=== PATIENT | female | born 1990 | race Caucasian/White ===

== ENCOUNTER → 2018-08-24 13:30 | Outpatient (CLI) | payer MEDICAID, SELFPAY ==
[2018-08-31 12:30] LABS: HPV Reflexed? NOT INDICATED
== END ==
PROVIDERS: Visit Provider Obstetrics & Gynecology
DX: Z12.4 Encounter for screening for malignant neoplasm of cervix (principal)
CPT/HCPCS: 88175; G0145

== ENCOUNTER 2018-09-30 05:56 | Day surgery (SDC) | payer MEDICAID, SELFPAY ==
--- NOTE | 2018-09-29 21:45 | HP.PCM_ITS ---
History and Physical Date of Admission: 09/30/18 Name: GERSON REGALADO Age: 28 Date of : 1990 PREOPERATIVE HISTORY AND PHYSICAL: On 09/16/2018, Gerson Regalado, a 28 year old female 2 0 0 0 2 who presents for laparoscopic bilateral salpingectomy. No further childbearing desired. She signed federal consent for tubal more than 30 days ago. EB ALLERGIES: NKDA MEDICATIONS HISTORY: Patient is also takin. Celexa 40 mg tablet, daily REVIEW OF SYSTEMS: GENERAL - Denies fever, or chills SKIN - Denies skin changes EYES - Denies visual changes EARS - Denies difficulty hearing NOSE - Denies nasal congestion or bleeding MOUTH - Denies sore throat or difficulty swallowing NECK - Denies pain or swelling RESPIRATORY - Denies shortness of breath or wheezing CARDIOVASCULAR - Denies palpitations or chest pain GASTROINTESTINAL - Denies nausea, vomiting, diarrhea, constipation GENITOURINARY - Denies dysuria, frequency of urination, incontinence of urine MUSCULOSKELETAL - Denies joint or muscle pain NEUROLOGICAL - Denies localized numbness or weakness PSYCHIATRIC - Denies depression or anxiety ENDOCRINE - Denies heat or cold intolerance, weight loss or gain HEMATO-IMMUNOLOGIC - Denies excesive bleeding with cuts PAST HISTORY: Breast/Ovarian/Colon Cancers - Denies Infections - Chicken pox Illnesses - LGSIL pap Accidents - broken R foot, 2003, A/A age 11 and no probs Hospitalizations - Childbirth by [facility]; SURGICAL HISTORY: 1. 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 Illicit Drug Use - denies use of street drugs Sexual Activity - single sexual partner Residence - lives with family Place of - [place] Hours Worked - 40-50 Children Name(s) - Rafa Control - condoms PHYSICAL EXAMINATION BP- 100/80 Sitting, Right arm, regular cuff Weight- 180.40 lbs Height- 64.50 inch BMI:30.55 CONSTITUTIONAL - NAD, well nourished, and well developed HEENT - Normocephalic, PERRLA, EOMI NECK - supple LUNGS - CTA x2 without wheezes, crackles or rales CARDIAC - Regular rate and rhythm without rubs, murmurs, or gallops BREAST - deferred EXTREMITIES - No edema or calf tenderness NEUROLOGICAL - Cranial nerves II-XII grossly intact PSYCHIATRIC - A and O to time, place, person, mood and affect ASSESSMENT: 1. Other Specified Counseling, sterilization request PLAN BY DIAGNOSIS: 1. Other Specified Counseling, Sterilization request Interested in bilateral tubal ligation. NO further childbearing desired Reviewed R,B,A success, permanence, failure rate. Discussed: BTL Filshie clips, bilateral tubal fulguration. Bilateral salpingectomy Prefers L/S bilateral salpingectomy. Federal consent for tubal signed in August 2018, more than 30 d prior to scheduled surgery. Reviewed anticipated preop, operative and postop recovery including activity restrictions All questions answered to her satisfaction. Pamphlet given to read and consider further at prior visit: ACOG Sterilization by Laparoscopy. Proceed with Laparoscopic Bilateral salpingectomy. RTO for postop appointment in two weeks after surgery. Medication(s) Stopped/Reason: 27-0.8 mg tablet - No Longer Needed NO CHANGES TO H and P as entered Gracia Patel, 09/30/18 0718
--- NOTE | 2018-09-30 | FALS_PTH ---
PATIENT: GERSON REGALADO [place] [facility] [place][id number] AGE/SX: 28/F ROOM: RE09/30/[address]: Dr. Tammie Patel MD : 1990 BED: DIS: 09/30/2018 SPEC #: [id number] RECD: 09/30/18 13:04 STATUS: WILMAN AKOSUA #: [id number] ANGELNIA: 09/30/18 00:[address]: Tammie Patel DEPT: SURGICAL PATHOLOGY RECD BY: Shahab Brody ENTERED: 09/30/18 13:05 SP TYPE: FALL TUBES OTHR DR: Dr. Stephenie Kirk, DO Tissues: Fallopian tube Procedures: Surgery Specimen Level II HEADER OPERATION: Laparoscopic salpingectomy PRE-OP DIAGNOSIS: Sterilization request TISSUE SUBMITTED: Bilateral fallopian tubes MICROSCOPIC DIAGNOSIS Right and left fallopian tubes, bilateral salpingectomies: Right fallopian tube, complete cross section with focal endometriosis. Left fallopian tube, complete cross section with no pathologic change. See comment. AM:ynla 10/01/18 COMMENT Immunohistochemistry ([id number]) supports the above diagnosis. Case has been reviewed in consultation with Dr. Gagnon who concurs with the above diagnosis. IDC:CE MICROSCOPIC DESCRIPTION Slides are reviewed. GROSS DESCRIPTION Received is one container labeled with the patient's name and designated bilateral fallopian tubes. The specimen consists of two fallopian tubes with an average length of 4 cm and has an average diameter of 0.7 cm. Both fallopian tubes have normal fimbriated ends. No mass lesions are identified. Manager Cosmetic sections are submitted in two cassettes as follows: 1 - one fallopian tube, 2 - the other fallopian tube. / AM:nyla 09/30/18 TC:5 CPT: 11863 x2
--- NOTE | 2018-09-30 | IMM_PTH ---
PATIENT: GERSON REGALADO LOC: [facility] U#:[id number] AGE/SX: 28/F ROOM: RE09/30/[address]: Dr. Tammie Patel MD : 1990 BED: DIS: 09/30/2018 SPEC #: [id number] RECD: 10/01/18 14:31 STATUS: WILMAN REQ #: [id number] ANGELINA: 09/30/18 00:[address]: Tammie Patel DEPT: IMMUNOHISTOCHEMISTRY RECD BY: Francy Painting ENTERED: 10/01/18 14:32 SP TYPE: IMMUNO OTHR DR: Dr. Stephenie Kirk, DO Tissues: Fallopian tube Procedures: CEA (add) Vimentin (add) CD10 (initial) PHYSICIAN & INSTITUTION [place] [address] SPECIMEN INFORMATION: Tissue Source: Bilateral fallopian tubes Clinical Info: Sterilization request Specimen Number: [id number] #[id number] CPT code: 67033, 47789 x2 METHODOLOGY: Deparaffinized sections of prefer/formalin-fixed tissue or PAP/DQ stained slides are incubated with monoclonal/polyclonal antibodies/oligonucleotide probes. Localization is made via biotin free immunoperoxidase method. Appropriate controls are performed and reacted as expected. Results on target cell population are indicated in the following table: RESULTS: ANTIBODY / CLONE RESULT Block 1 CD10 (56C6) positive Vimentin (V9) positive CEA (11-7/TF-3HB-1) negative These tests were developed and their performance characteristics determined by [facility]. They may not have been cleared or approved by the [place]. Food and Drug Administration. The FDA has determined that such clearance or approval is not necessary. INTERPRETATION: Bilateral fallopian tubes, salpingectomy: Consistent with minute focus of endometriosis. AM:nyla 10/04/18
[2018-09-30 06:35] VITALS: BP 96/58; PULSE 70; RESP 14; TEMP 36.6; O2SAT 99; BMI 30.7
[2018-09-30 06:37] LABS: Internal QC Validated? YES +Cl - CLEAR BKGD; Pregnancy, Urine Negative Negative
[2018-09-30] MEDS: Bupiv/Epi 0.5% Mpf 30 ML Vial (07:50)
--- NOTE | 2018-09-30 08:01 | PCM.DC.TUB ---
Discharge Diet: No Restrictions Discharge Activity: May not drive while taking narcotic pain medications., May Shower, May Take a Tub Bath Return to work on:: 10/02/18 May resume sexual activity in: 1 week Additional Activity Instructions:: Ambulate often the next week after surgery. Nothing in the vagina for 5 days. Call your doctor if you observe: Fever of 101 or Higher, Inability to have a bowel movement, Uncontrolled pain Change Dressing in (Days):: 7 Remove Dressing in (days):: 7 Cleanse incision/area with: Soap & Water, Keep Dressing Clean & Dry Allergies/Adverse Reactions: Allergies No Known Allergies Allergy (Verified 09/23/18 14:41) Medications to take at Discharge Ascorbic Acid [Vitamin C] 1,000 mg PO DAILY 09/23/18 Calcium Carbonate/Vitamin D3 [Calcium 500-Vit D3 600 Tablet] 1 each PO DAILY 09/23/18 Citalopram [Celexa] 40 mg PO DAILY 09/23/18 Multivitamin with Minerals [Multiple Vitamin] 1 each PO DAILY 09/23/18 Vest-3 Fatty Acids/Fish Oil [Fish Oil 1,000 mg Capsule] 1 each PO DAILY 09/23/18 Oxycodone HCl/Acetaminophen [Percocet 5-325] 1 - 2 tablet PO Q4H PRN PRN 7 Days #10 tablet 09/30/18 The following prescriptions were given: Oxycodone HCl/Acetaminophen [Percocet 5-325] 1 - 2 tablet PO Q4H PRN PRN 7 Days #10 tablet PRN Reason: Mod-Severe Pain (4-10/10) Primary Care Physician: Stephenie Cohen DO [Primary Care Provider] - Test Results: Test results from this visit will be discussed in further detail at your follow-up appointment, if applicable. Please Follow Up With: Tammie Patel MD - [phone] When: in two weeks for postop incision check Proposed Discharge Date: 09/30/18
--- NOTE | 2018-09-30 08:05 | DCINST_ITS ---
Discharge Diet: No Restrictions Discharge Activity: May not drive while taking narcotic pain medications., May Shower, May Take a Tub Bath Return to work on:: 10/02/18 May resume sexual activity in: 1 week Additional Activity Instructions:: Ambulate often the next week after surgery. Nothing in the vagina for 5 days. Call your doctor if you observe: Fever of 101 or Higher, Inability to have a bowel movement, Uncontrolled pain Change Dressing in (Days):: 7 Remove Dressing in (days):: 7 Cleanse incision/area with: Soap & Water, Keep Dressing Clean & Dry Allergies/Adverse Reactions: Allergies No Known Allergies Allergy (Verified 09/23/18 14:41) Medications to take at Discharge Ascorbic Acid [Vitamin C] 1,000 mg PO DAILY 09/23/18 Calcium Carbonate/Vitamin D3 [Calcium 500-Vit D3 600 Tablet] 1 each PO DAILY 09/23/18 Citalopram [Celexa] 40 mg PO DAILY 09/23/18 Multivitamin with Minerals [Multiple Vitamin] 1 each PO DAILY 09/23/18 [place]-3 Fatty Acids/Fish Oil [Fish Oil 1,000 mg Capsule] 1 each PO DAILY 09/23/18 Oxycodone HCl/Acetaminophen [Percocet 5-325] 1 - 2 tablet PO Q4H PRN PRN 7 Days #10 tablet 09/30/18 The following prescriptions were given: Oxycodone HCl/Acetaminophen [Percocet 5-325] 1 - 2 tablet PO Q4H PRN PRN 7 Days #10 tablet PRN Reason: Mod-Severe Pain (4-10/10) Primary Care Physician: Stephenie Cohen DO [Primary Care Provider] - Test Results: Test results from this visit will be discussed in further detail at your follow- up appointment, if applicable. Please Follow Up With: Tammie Patel MD - [phone] When: in two weeks for postop incision check Proposed Discharge Date: 09/30/18
[2018-09-30 08:14] VITALS: BP 103/53; BP 96/58; PULSE 69; RESP 16; TEMP 36.7; O2SAT 97
--- NOTE | 2018-09-30 08:19 | PCM.OPRPT ---
Report of Operation Date of Procedure: 09/30/18 Pre-Operative Diagnosis: sterilization request Post-Operative Diagnosis: Same Surgery/Procedure Performed:: Laparoscopic bilateral salpingectomy hoisting engineer pile driving: Yuliana Garcia Type of Anesthesia:: General Anesthesiologist: Yared Barron CRNA Specimen's removed: Bilateral fallopian tubes Drains: red encinas prior to procedure Estimated Blood Loss (mL): 20 Fluids Replaced: LR Description of Procedure: Findings: There is a normal-appearing [anteverted] uterus. Fallopian tubes and ovaries are within normal limits. Gross inspection of the bowel, omentum, liver edge are also within normal limits. Photos were taken of the uterus and ovaries after the bilateral partial salpingectomy, and of the right upper quadrant/liver edge. Narrative account: After the risks, benefits, alternatives of the procedure have been reviewed with the patient, informed consent was obtained. The patient was taken to the operating room with an IV running. She was positioned on the operating table in dorsal supine position, where she was given general anesthesia. Once asleep she was repositioned into the dorsal lithotomy position and prepped and draped in the usual sterile fashion. A red Encinas catheter was used to drain the bladder prior to initiating the case. A single-toothed tenaculum and Tip cannula were placed into the cervix to allow manipulation of the cervix and uterus during the case. Attention was then turned to the anterior abdominal wall where 0.5% percent Marcaine with epinephrine was instilled at the suprapubic and infraumbilical skin and at a point midway between the two, in the midline. Skin incisions were then created in the midline at the suprapubic skin, at the infraumbilical skin, and at a point in the midline midway between the two. While maintaining upward traction of the anterior abdominal wall, a Veress needle was inserted through the umbilical incision into the peritoneal cavity. There was free drop of saline, low opening pressure and free flow of CO2 noted. Once the intra-abdominal pressure had reached 12 mmHg the Veress needle was removed and a bladeless 5 mm trocar was inserted through the infraumbilical skin incision into the peritoneal cavity. Correct placement was confirmed using the scope. Under direct visualization then with the patient in Trendelenburg position, a bladeless 5 mm trocar was inserted in through the suprapubic skin incision into the peritoneal cavity and at the midlower abdominal incision midway between the infraumbilical and suprapubic trochars. The uterus was anteverted and both ovaries and fallopian tubes were within normal limits. The right fallopian tube was grasped and retracted medially and using a LigaSure device the right fallopian tube was excised from the ovary and mesosalpinx to the level of the uterine fundus. Excellent hemostasis was noted at the excision site. The [right] fallopian tube was brought through the suprapubic trocar and set aside for later pathology review. In a similar manner the [left] fallopian tube was grasped and retracted medially and the fallopian tube was excised and removed from the abdominal cavity through the suprapubic trocar. The fallopian tubes were sent to pathology. Excellent hemostasis was noted by visualization of the pelvis, ovaries, and remaining mesosalpinx. Photos were taken of the uterus and bilateral remaining ovaries and of the right upper quadrant and liver edge. At this point the procedure was terminated. The pneumoperitoneum was reduced and the instruments and trochars were removed from the anterior abdominal wall skin. The skin incisions were closed with 4-0 Monocryl in a subcuticular fashion Dermabond and op sites were applied to the skin. The single-toothed tenaculum and Tip cannula were then removed from the vagina. The patient was returned to dorsal supine position. She was awakened from general anesthesia. She was transferred to the recovery room bed in stable condition after tolerating the procedure well. Sponge, lap, needle and instrument counts were correct x two. Medications given preop and intra-op included: 10 cc of half percent Marcaine with epinephrine used as a subcutaneous block, and Toradol 30 mg IV x1. For a complete listing of medications given preop and intra-op please see the anesthesia record. - Complications none - Admit VTE Documentation VTE Present on Admission: No VTE Mechan Device Prophylaxis: SCD's VTE Pharm Prophylaxis ordered?: No
[2018-09-30 08:30] VITALS: BP 100/63; BP 96/58; PULSE 67; RESP 16; O2SAT 99
[2018-09-30 08:45] VITALS: BP 95/63; BP 96/58; PULSE 75; RESP 16; O2SAT 100
[2018-09-30 09:00] VITALS: BP 94/60; BP 96/58; PULSE 63; RESP 16; TEMP 36.8; O2SAT 100
[2018-09-30] MEDS: Acetaminophen 500 MG Tablet 1000 MG PO (09:19)
[2018-09-30] MEDS: oxyCODONE 5 MG Tablet PO (09:20)
[2018-09-30 09:41] VITALS: BP 96/58; BP 98/60; PULSE 66; RESP 16; TEMP 36.8; O2SAT 99
== END 2018-09-30 09:42 | disposition home or self-care (01) ==
LOC: SDC 05:57 → AC 06:00
PROVIDERS: Anesthesiology; Family Provider Family Medicine; PCP Family Medicine; Referring Provider Obstetrics & Gynecology; Visit Provider Obstetrics & Gynecology
PROC: (CPT 58661; principal; 2018-09-30 07:15)
DX: Z20.2 Contact with and (suspected) exposure to infections with a predominantly sexual mode of transmission (principal); N80.2 Endometriosis of fallopian tube; F32.9 Major depressive disorder, single episode, unspecified; Z72.0 Tobacco use
CPT/HCPCS: 58661; 81025; 88302; 88341; 88342; J7120

== ENCOUNTER → 2024-10-19 | Outpatient (CLI) | payer MEDICAID, SELFPAY ==
--- NOTE | 2024-10-19 13:21 | RAD_ITS ---
PROCEDURE: CHEST PA AND LATERAL 10/19/2024 REASON FOR EXAM: SOB TECHNIQUE: Frontal and lateral views of the chest. COMPARISON: None. RAD/Chest PA and Lateral IMPRESSION: Lungs appear clear throughout. No pleural effusion or pneumothorax is seen. The cardiomediastinal silhouette is within the normal range. No significant osseous abnormality is seen. Negative examination. Reading Location: [id number]
== END | disposition home or self-care (01) ==
LOC: MTRAD 13:21
PROVIDERS: PCP Family Medicine; Referring Provider Physician Assistant; Visit Provider Physician Assistant
DX: R06.02 Shortness of breath (principal)
CPT/HCPCS: 71046